=== PATIENT | male | born 1965 ===

== ENCOUNTER 2017-11-11 11:32 | Inpatient (IN) | payer OTHER ==
[~2017-11-11 11:32] MED LIST: ISOVUE-370 76%-LOCM 1 ML ONE
--- NOTE | 2017-11-11 12:05 | CT ---
CT CERVICAL SPINE NONCONTRAST: Date: 11/11/17 HISTORY: Fall. Neck injury. FINDINGS: Vertebral body heights are maintained. Disc space narrowing and minimal degenerative retrolisthesis a re present at the C3-4 level where osteophytosis is also most pronounced. Cervicothoracic junction is intact. No acute fracture or dislocation. Fibrotic changes are partially visualized at the lung apic es. IMPRESSION: Degenerative changes cervical spine. No acute osseous abnormalities are demonstrated. POS: [facility]
--- NOTE | 2017-11-11 12:06 | CT ---
CT BRAIN WITHOUT CONTRAST: Date: 11/11/17 HISTORY: Level II trauma, fall, GS 13, no loss of consciousness, dizziness. FINDINGS: No evidence of acute infarct, hemorrhage, midline shift, or abnormal extra-axial fluid collections ar e seen. The ventricular size is normal and the basilar cisterns are patent. The bony calvarium is int act. The visualized paranasal sinuses and mastoid air cells are well aerated. IMPRESSION: No CT evidence of acute intracranial process. Discussed over the telephone with ER physician, Dr. Lynne, at 1200 hours. CODE CR. POS: [facility]
--- NOTE | 2017-11-11 12:37 | CT ---
CT CHEST WITH IV CONTRAST CT ABDOMEN AND PELVIS WITH IV CONTRAST CT THORACIC SPINE NONCONTRAST CT LUMBAR SPINE NONCONTRAST: Date: 11/11/17 HISTORY: Fall. Chest injury. Abdomen injury. Back injury. FINDINGS: Nondisplaced and mildly displaced fractures involve the anterior aspect of the right 7th rib and post erior aspect of right ribs 7, 8, and 9, and right ribs 10 and 11. Fractures also involve the lateral aspect of left ribs 4, 5, 6, and 7, and the posterior aspect of left ribs 11 and 12. Tiny left java support engineer ior pneumothorax with significant bibasilar atelectasis. No mediastinal hematoma. Hemangioma is appar ent within the posterior segment right liver lobe. No solid organ intra-abdominal injury is apparent. Minimal haziness around the pancreas could be related to contusion. Fractures involve the right lumbar transverse processes of L3 and L5, and the left L2, L3, and L4 lum bar transverse processes. There is widening of each sacroiliac joint. Nondisplaced fractures through the bilateral superior and inferior pubic rami are present with widening of the pubic symphysis. Mini viktoria displaced comminuted fracture of the left acetabulum includes intraarticular component to the a nterior medial wall with 0.2 cm distraction. The fracture includes the left anterior and posterior co lumns. A small amount of blood extends along the left internal pelvic wall, between the urinary bladd er and iliac vessels. There is slight effacement of the left side of the urinary bladder, although th e hematoma remains small. No active extravasation of contrast is evident. IMPRESSION: 1. Comminuted pelvic fractures including multiplane extension into the left acetabulum and involveme nt of the anterior and posterior columns. There is also diastasis of the pubic symphysis and sacroili ac joints. Small left pelvic wall hematoma is present. Please consider emergent orthopedic evaluation . 2. Very small left pneumothorax with multiple bilateral rib fractures as detailed above. Bilateral l umbar spine transverse process fractures are also apparent. Findings called to Dr. Lynne in the emergency department at 1206 hours. CODE CR. POS: [facility]
[2017-11-11 12:38] LABS: PTT 26.7 SEC (22.9-36.1); Prothrombin Time 13.7 SEC (12.0-14.7)
--- NOTE | 2017-11-11 12:39 | RAD ---
AP VIEW PELVIS: Date: 11/11/17 HISTORY: Fall. FINDINGS: There is a mildly displaced fracture through the left posterolateral aspect of the acetabulum. There is a widening of the right SI joint. There is widening of the pubic symphysis. IMPRESSION: Left acetabular fracture with widening of the right SI joint and pubic symphysis. POS: [facility]
--- NOTE | 2017-11-11 12:42 | RAD ---
CHEST 1 VIEW: Date: 11/11/17 HISTORY: 51-year-old male with history of chest injury following a fall 30-ft from a train trestle bridge. FINDINGS: Poor inspiratory effort. Monitor leads overlie the chest. Minimal motion artifact. Probable nondispla ashwini fractures of the left 6th and 7th ribs. No evidence for pneumothorax by plain film. IMPRESSION: Nondisplaced fractures of at least the left 6th and 7th ribs. No evidence for pneumothorax by plain f ilm examination. Poor inspiratory effort with some mild vascular congestion. POS: [facility]
[2017-11-11 12:53] LABS: Hemoglobin 13.8 g/dL (14.0-18.0); Mean Corpuscular HGB CONC 33.7 g/dL (32.0-36.0); Mean Corpuscular Hemoglobin 30.3 pg (27.0-31.0); Mean Corpuscular Volume 89.8 fL (78.0-98.0); Mean Platelet Volume 6.4 fL (7.4-10.4); Platelet Count 303 thou/uL (130-400); Red Blood Cell (RBC) Count 4.55 mill/uL (4.70-6.10)
[2017-11-11 12:55] LABS: ALT (SGPT) 105 U/L (8-55); AST (SGOT) 122 U/L (5-34); Alkaline Phosphatase 61 U/L (40-150); Anion Gap 15 mmol/L (10-20); BUN (Urea Nitrogen) 13 mg/dL (8.4-25.7); Bilirubin, Total 0.7 mg/dL (0.2-1.2); Calc. Creatinine Clearance 0 mL/min (70-130); Calcium 8.7 mg/dL (7.8-10.44); Carbon Dioxide 19 mmol/L (22-29); Chloride 105 mmol/L (98-107); Estimated GFR-MDRD 44; Globulin 2.7 g/dL (2.4-3.5); Glucose 245 mg/dL (70-105); Potassium 4.1 mmol/L (3.5-5.1); Protein, Total 6.7 g/dL (6.0-8.3); Sodium 135 mmol/L (136-145)
[2017-11-11] MEDS ORDERED: Ketorolac Tromethamine 30 MG/ML VIAL ONE (12:56)
[2017-11-11 13:02] LABS: Band 17 % (5-11); Lymphocytes 15 % (21-51); MDiff Complete? YES; Monocytes 3 % (0-10); Neutrophil 64 % (42-75); PLT Morphology Comment Appears Adequate; RBC Morphology Normal; Reactive Lymphocytes 1 % (0-10)
[2017-11-11] MEDS ORDERED: Fentanyl 100 MCG/2 ML VIAL ONE (13:47)
[2017-11-11] MEDS ORDERED: Adacel (T-DAP) 0.5 ML VIAL ONE (14:19)
[2017-11-11] MEDS ORDERED: hydrALAZINE 20 MG/ML VIAL SLOW IVP PRN (15:02)
[2017-11-11] MEDS ORDERED: Dextrose 50% Abboject 50 ML SYRINGE SLOW IVP PRN (15:02)
[2017-11-11] MEDS ORDERED: Dextrose 5% in Water 1,000 ML IV PRN (15:02)
[2017-11-11 15:10] VITALS: BMI 36.6
[2017-11-11 15:22] LABS: Hemoglobin 13.2 g/dL (14.0-18.0)
[2017-11-11] MEDS: Acetaminophen 1,000 MG in Premix Bag 1 BAG IVPB SCH (18:01)
--- NOTE | 2017-11-11 18:27 | CON ---
DATE OF CONSULTATION: 11/11/2017 CHIEF COMPLAINT: Pelvic pain. HISTORY OF PRESENT ILLNESS: Mr. Fregoso is a 51-year-old male who was working today. He works on a [employer]. He fell down a steep embankment approximately 30 feet. He rolled and struck his pelvis and hip. He was unable to ambulate. He was taken to the emergency department by EMS. Upon initial charlene luation, he was found to have pelvic fracture with opening of the bilateral sacroiliac joints as well as opening of the anterior symphysis. He has also been found to have a left acetabulum fracture. A pelvic binder was placed in the field. He has been stable since arrival. He has received intraveno us fluids for resuscitation. No other injuries have been identified. He is having ongoing trauma wo rkup. PAST MEDICAL HISTORY: The patient denies active medical problems except for obesity. PAST SURGICAL HISTORY: Left hand tendon surgery. SOCIAL HISTORY: He denies tobacco, alcohol or drug use. FAMILY MEDICAL HISTORY: Noncontributory. REVIEW OF SYSTEMS: Positive for hip and pelvis pain as per HPI. IMAGING DATA: CT scan of the pelvis as well as AP pelvis x-ray demonstrated widening of the symphysi s pubis with some vertical malalignment. There is also opening of the bilateral sacroiliac joints. There is a transverse type acetabulum fracture with minimal displacement. The majority of the fractu re is extraarticular. PHYSICAL EXAMINATION: VITAL SIGNS: Stable. GENERAL: The patient is alert, lying supine in no apparent distress. HEENT: Cervical collar is in place. Normocephalic and atraumatic. RESPIRATORY: Breathing comfortably. ABDOMEN: Soft, nontender, nondistended. MUSCULOSKELETAL: The patient's bilateral lower extremities have intact sensation distally. He is ab le to flex and extend the feet and ankles. He has a palpable pulse. He has superficial abrasions an d lacerations over the lower extremities. Pelvic binder is in place, but is not significantly tight. He has pain with hip motion on the left. IMPRESSION: Status post fall with acetabulum fracture, left and bilateral sacroiliac disruption with opening of the pubic symphysis. PLAN: At this point, the patient will have ongoing resuscitation and trauma workup. He will have ap propriate DVT prophylaxis. I have discussed his pelvic injury with him in detail. We will plan for open reduction and internal fixation of the pubic symphysis as well as bilateral sacroiliac screw evita cement to be done tomorrow. I will assess his acetabulum further on CT scan and 3D reconstructions. At this point, I am leaning towards nonoperative treatment for the acetabulum as it appears to be mi nimally displaced and largely extraarticular. He is aware he will need at least 6 weeks to 2 months of nonweightbearing. Risks have been reviewed which do include infection, pain, scarring, nerve or v ascular injury, DVT, PE, nonunion, malunion and others.
[2017-11-11] MEDS: Famotidine 20 MG TAB PO SCH (19:43)
[2017-11-11] MEDS: Sodium Chloride 0.9% 1,000 ML IV SCH (19:49)
--- NOTE | 2017-11-11 21:08 | HP ---
DATE OF SERVICE: 11/11/2017 HISTORY OF PRESENT ILLNESS: This is a 51-year-old gentleman, who was brought in by EMS, who was up o n an embankment, working fell tumbled down an embankment. Questionable loss of consciousness and pat ient complains of back pain. He also complains of shortness of breath. On arrival, he is diaphoreti c and pale, dusky. The patient lives out of town, states he lives in [place] is here working. ALLERGIES: He has no known drug allergies. CURRENT MEDICATIONS: Wellbutrin. He also takes blood pressure medicine, unknown name and also medic ation for triglycerides. PAST SURGICAL HISTORY: Left hand tendon repair. FAMILY HISTORY: Reports his mom had diabetes and of Alzheimer's. SOCIAL HISTORY: He denies tobacco use. He denies alcohol use or any illegal drug use. The patient is . REVIEW OF SYSTEMS: HEENT: The patient denies headaches, vision changes. PULMONARY: Denies any wheezing. He does complain of some mild shortness of breath. Denies history of smoking. CARDIAC: Denies any chest pain or palpitations. GI: He does complain of abdominal pain mainly in the lower area. Denies any nausea or vomiting, shay rrhea or constipation. MUSCULOSKELETAL: He denies any joint swelling. NEUROLOGIC: Denies any seizure, although he was unsure if he lost consciousness when he fell. Denie s any weakness. PHYSICAL EXAMINATION: VITAL SIGNS: Blood pressure is 100/68, heart rate is 84, respirations 24. The patient is satting 10 0% on 2 liters nasal cannula. Oral temperature is 97.4. GENERAL: The patient is awake and alert. GCS of 15, although he was unaware if he lost consciousnes s when he fell. SKIN: Pale, dusky and diaphoretic. HEENT: Pupils are equal and reactive at 2.5 mm. Head is atraumatic. PULMONARY: He has bilateral breath sounds equal. Right is slightly tachypneic. There is no rhonchi , wheezes, or rales. CARDIOVASCULAR: Rhythm is normal. The patient does have S1 and S2, no murmurs noted. ABDOMEN: The patient has tender lower abdomen. There are no obvious abrasions. : The patient has no blood at the meatus. Pelvis is tender to palpation and pelvic binder is in p lace. MUSCULOSKELETAL: The patient does complain of low back pain. He moves all extremities equal with go od range of motion. NEUROLOGIC: Cranial nerves are intact and GCS is 15. LABORATORY DATA: White count is 22.0, RBCs are 4.55, hemoglobin is 13.8, hematocrit 40.9, platelet c ount is 303, MPV 6.4, neutrophils 64, bands 17, lymphocytes 15. PT is 13.7, INR is 1.0, PTT is 26.7. Sodium is 135, potassium 4.1, chloride 105, carbon dioxide is 19, anion gap is 15, BUN 13, creatini ne 1.66. Estimated GFR is 44, glucose 245, calcium 8.7, total bilirubin 0.7, AST is 122, ALT 105, al kaline phosphatase is 61. Serum total protein is 6.2, albumin is 4.0, globulin is 2.7, and the ratio is 1.5. DIAGNOSTICS: Pelvis x-ray has a left acetabular fracture with widening of the right SI joint and pub ic symphysis. CT cervical spine shows no acute abnormality. Brain CT is normal. CT chest, abdomen, and pelvis shows multiple pelvic fractures, anterior and posterior, also a very small left pneumotho rax with multiple bilateral rib fractures as stated from the chest x-ray. ASSESSMENT: 1. Fall approximately 30 feet from an embankment. 2. Multiple pelvic fractures. 3. Bilateral multiple rib fractures. 4. Bilateral pulmonary contusions. 5. Multiple lumbar transverse process fractures. 6. Grade II liver laceration. 7. Dehydration. PLAN: Admit to CCU, 2 units of packed red blood cells were given. Ortho consult for pelvis fracture s, binder remains in place. Repeat CBC, CMP in the morning. Repeat chest x-ray in the morning to ev aluate his rib fractures. We will encourage incentive spirometer. We will place patient on a pain r egimen. He will be n.p.o. after midnight for OR for his pelvis repair. DICTATED BY: Nafisa, Nurse Practioner Student for Dr. Demario Yoo.
[2017-11-11 21:41] LABS: Hemoglobin 12.6 g/dL (14.0-18.0)
[2017-11-12] MEDS: Acetaminophen 1,000 MG in Premix Bag 1 BAG IVPB SCH ×3 (02:38→10:52)
[2017-11-12 04:58] LABS: #Eosinphils 0.1 thou/uL (0.0-0.7); #Lymphocytes 1.7 thou/uL (1.20-3.40); #Monocytes 0.9 thou/uL (0.11-0.59); #Neutrophils 6.9 thou/uL (1.40-6.50); %Basophils 0.2 % (0.0-1.0); %Eosinophils 0.5 % (0.0-10.0); %Lymphocytes 17.9 % (21.0-51.0); %Monocytes 9.1 % (0.0-10.0); %Neutrophils 72.3 % (42.0-75.0); Hemoglobin 11.7 g/dL (14.0-18.0); Mean Corpuscular HGB CONC 35.3 g/dL (32.0-36.0); Mean Corpuscular Hemoglobin 31.3 pg (27.0-31.0); Mean Corpuscular Volume 88.6 fL (78.0-98.0); Mean Platelet Volume 6.1 fL (7.4-10.4); Platelet Count 183 thou/uL (130-400); RBC Distribution Width 12.2 % (11.5-14.5); Red Blood Cell (RBC) Count 3.74 mill/uL (4.70-6.10); White Blood Cell (WBC) Count 9.6 thou/uL (4.8-10.8)
[2017-11-12 05:07] LABS: Anion Gap 9 mmol/L (10-20); BUN (Urea Nitrogen) 13 mg/dL (8.4-25.7); Calc. Creatinine Clearance 129 mL/min (70-130); Calcium 7.7 mg/dL (7.8-10.44); Carbon Dioxide 26 mmol/L (22-29); Chloride 106 mmol/L (98-107); Estimated GFR-MDRD 71; Glucose 152 mg/dL (70-105); Potassium 4.2 mmol/L (3.5-5.1); Sodium 137 mmol/L (136-145)
[2017-11-12] MEDS: Sodium Chloride 0.9% 1,000 ML IV SCH ×3 (05:59→20:50)
[2017-11-12] MEDS: Famotidine 20 MG TAB PO SCH ×2 (08:10→20:49)
--- NOTE | 2017-11-12 08:50 | PRG ---
DATE OF SERVICE: 11/12/2017 SUBJECTIVE: Mr. Fregoso is a 51-year-old man who suffered multiple trauma after falling down an emban kment yesterday at work. The patient sustained bilateral rib fractures, bilateral pulmonary contusio ns, bilateral pelvic fractures, multilevel lumbar transverse process fractures as well as a grade II liver laceration. He has remained hemodynamically stable overnight. The pain is adequately controll ed with analgesics. He did receive 2 units of packed red blood cells yesterday and has required none since. OBJECTIVE: VITAL SIGNS: This morning includes blood pressure 130/70, pulse 70, respiratory rate 19, maximum tem perature in the last 24 hours is 98.7 degrees Fahrenheit, oxygen saturation is 100% on 2 liters by na desiree cannula oxygen. Franky coma scale is 15. HEENT: Reveals normocephalic and atraumatic. Pupils equal, round, reactive to light and accommodati on. HEART: Reveals regular rate and rhythm, no murmurs or gallops auscultated. CHEST: Clear to auscultation bilaterally. Breathing is regular and unlabored. ABDOMEN: Soft, nontender, nondistended. Liver and spleen nonpalpable below costal margin. EXTREMITIES: Reveals 2+ radial and pedal pulses bilaterally. No ankle edema is present. NEUROLOGIC: Reveals no focal deficits present. LABORATORY DATA: Include a CBC with 9600 white blood cells, hemoglobin and hematocrit are stable at 11.7 and 33.1 respectively. Platelet count is also stable at 183,000. Metabolic profile: Sodium 13 7, potassium 4.2, chloride is 106, bicarbonate is 26, BUN 13, creatinine is 1.09, glucose is 152. IMPRESSION: 1. Post-injury day #1, status post fall down an embankment. 2. Stable bilateral rib fractures and pulmonary contusions. 3. Bilateral pelvic fractures. 4. Grade II liver laceration, no clinical evidence of active hemorrhage. PLAN: 1. Continue current pain management. 2. Continue with nonpharmacological VTE prophylaxis. 3. The patient is certainly hemodynamically stable to proceed to the operating room with Orthopedic Surgery with regards to his pelvic fractures. The patient indicates understanding of information given. I have answered his questions.
--- NOTE | 2017-11-12 08:50 | RAD ---
PORTABLE CHEST 1 VIEW: Date: 11/12/17 Time: 0438 hours HISTORY: Pulmonary contusions. FINDINGS/IMPRESSION: Comparison made with exam from previous day. There is continued elevation of the right hemidiaphragm. Left-sided rib fractures area again noted. N o lobar consolidation, pneumothorax, or large effusions are seen. POS: [facility]
[2017-11-12 09:17] LABS: Hemoglobin 11.8 g/dL (14.0-18.0)
[2017-11-12] MEDS ORDERED: CEFAZOLIN/Water 2 GM/20 ML SYRINGE SLOW IVP SCH ×2 (12:00→20:00)
[2017-11-12] MEDS ORDERED: Famotidine/PF 20 mg/2ml Vial ONE (13:29)
[2017-11-12] MEDS ORDERED: Midazolam HCl 2 mg/2 ml Vial ONE (13:29)
[2017-11-12] MEDS ORDERED: Fentanyl 100 MCG/2 ML VIAL ONE ×4 (13:29→18:39)
[2017-11-12] MEDS ORDERED: PROPOFOL 200 MG/20 ML VIAL ONE (13:30)
[2017-11-12] MEDS ORDERED: Ketorolac Tromethamine 30 MG/ML VIAL ONE (13:30)
[2017-11-12] MEDS ORDERED: Lidocaine 1% PF 5 ML VIAL ONE (13:30)
[2017-11-12] MEDS ORDERED: Ondansetron HCl/PF 4 MG/2 ML Vial ONE (13:30)
[2017-11-12] MEDS ORDERED: Succinylcholine Chloride 20 MG/ML 10 ml SYRINGE FS ONE (13:30)
[2017-11-12] MEDS ORDERED: Ondansetron HCl/PF 4 MG/2 ML Vial IVP PRN (18:08)
[2017-11-12] MEDS ORDERED: HYDROmorphone 2 MG/ML VIAL SLOW IVP PRN (18:08)
[2017-11-12] MEDS ORDERED: Promethazine HCl 25 MG/ML VIAL IM PRN (18:08)
[2017-11-12] MEDS ORDERED: Promethazine HCl 25 MG/ML VIAL SLOW IVP PRN (18:08)
[2017-11-12 18:19] LABS: Hemoglobin 11.6 g/dL (14.0-18.0)
[2017-11-12] MEDS ORDERED: traMADol HCl 50 MG TAB PO PRN (18:27)
--- NOTE | 2017-11-12 20:40 | RAD ---
SEVEN INTRAOPERATIVE IMAGES OF THE PELVIS: 11/12/17 HISTORY: Pelvic fracture status post open reduction and internal fixation. FINDINGS: There is postoperative screw and plate fixation present involving the bilateral pubic bones traversin g the pubic symphysis and extending into the region of the acetabulum on the left. There are two scott ulated lag screws which traverse the sacroiliac joints. IMPRESSION: ORIF as above. POS: [facility]
[2017-11-12] MEDS: Ibuprofen 800 MG TAB PO SCH (20:49)
[2017-11-12] MEDS: Acetaminophen 325 MG TAB PO SCH (20:49)
--- NOTE | 2017-11-12 21:23 | CT ---
CT OF THE PELVIS 11/12/17 COMPARISON: 11/11/17. HISTORY: Pelvic fractures, status post open reduction and internal fixation. TECHNIQUE: Serial axial CT imaging at 3.75 mm intervals through the pelvis without contrast. Coronal and sagitta l reformatted imaging obtained. FINDINGS: Lizarraga catheter extends into the urinary bladder. Horizontally oriented anterior cutaneous garrett are present superior to the pubic symphysis. Neither hip is dislocated. Bilateral mildly displaced inferior pubic rami fractures are noted. There is a subtle obliquely oriented fracture involving the anterior superior aspect of the acetabulu m on the right, best seen on image 46, stable and nondisplaced. There is extensive new screw and plate fixation associated with bilateral pubic bones traversing the pubic symphysis and extending into the acetabulum on the left. A comminuted fracture of the acetabulu m involving the anterior posterior and medial portions of the left acetabulum again noted and demonst rating no significant displacement. The previously noted diastasis of the pubic symphysis has been re duced. There are screws traversing bilateral sacroiliac joints. There is mild residual widening of the sacro iliac joints, improved. No displaced sacral fracture is identified. There is a subtle linear defect involving the superior aspect of the iliac bone on the left on image 19, which may be postoperative in nature. There is a nondisplaced fracture involving the right transv erse process of the L5 vertebral body. There is a fracture involving the tip of the left transverse p rocess of L4 vertebral body. There is nonspecific small volume fluid in the presacral space. There is subcutaneous gas anterior an d superior to the pubic symphysis and in the left inguinal region. There is gas within the urinary bladder. The anterior aspect of the urinary bladder extends slightly more anterior than normal, projecting superior to and slightly to the postoperative hardware at the l evel of the pubic symphysis. Significance is uncertain. This may be related to anterior herniation as sociated with acute muscle injury in this region. Clinical correlation is required as is followup howardthom carlton. IMPRESSION: Multiple fractures status post ORIF as above. Gas within the urinary bladder is noted, with the urina ry bladder extending anterior to and superior to the pubic symphysis as detailed above. Thus followup imaging is advised. POS: [facility]
[2017-11-12 21:24] LABS: Hemoglobin 10.5 g/dL (14.0-18.0)
[2017-11-12] MEDS: traMADol HCl 50 MG TAB PO SCH (23:01)
[2017-11-12] MEDS: CEFAZOLIN/Water 2 GM/20 ML SYRINGE SLOW IVP SCH (23:01)
[2017-11-13] MEDS: Acetaminophen 325 MG TAB PO SCH ×3 (00:56→08:17)
--- NOTE | 2017-11-13 01:51 | OP ---
DATE OF PROCEDURE: 11/12/2017 OPERATION: 1. Open reduction internal fixation of left acetabulum fracture. 2. Open reduction internal fixation of pubic symphysis. 3. Bilateral sacroiliac screw placement. PREOPERATIVE DIAGNOSES: 1. Left acetabulum fracture, transverse. 2. The pubic symphysis disruption and bilateral sacroiliac joint disruption. POSTOPERATIVE DIAGNOSES: 1. Left acetabulum fracture, transverse. 2. The pubic symphysis disruption and bilateral sacroiliac joint disruption. COMPLICATIONS: None. ESTIMATED BLOOD LOSS: 500 mL SURGEON: Maik Bhatia M.D. TRADE RECRUITER: Jimmy Bonds M.D. IMPLANTS: Synthes 3.5 mm nonlocking screws and a pelvic reconstruction plate, 14-hole was used. We also used two 7.3 mm cannulated screws. INDICATIONS: Mr. Fregoso is a 51-year-old male who fell down in an embankment. He sustained severe f racture of the pelvis and acetabulum. He was indicated for open reduction and internal fixation to r estore anatomic alignment and promote healing. Risks were reviewed in detail. He elected to proceed with the operation. Risks do include infection, nonunion, malunion, nerve or vascular injury, DVT, PE, hardware failure and others. DESCRIPTION OF PROCEDURE: Mr. Fregoso was identified in the preoperative holding area. His correct e xtremity was marked. He was carried to the operating room. He was positioned supine. General anest hesia was induced. A multidisciplinary timeout was performed. The pelvis and anterior abdomen was p repped and draped in sterile fashion. We began the procedure with a midline Pfannenstiel type incision. We dissected down to the subcutane ous tissues, then developed the rectus abdominis plane. This brought us down to the level of the bud dder. The bladder was retracted. We encountered the widely displaced pubic symphysis. We elevated the tissues from the pubic symphysis and worked from the midline. We worked to the left side develop ing the Stoppa approach. This intrapelvic approach allowed us to follow the pelvic brim around past the acetabulum fracture. We ligated the pak mortise vessel. The iliopectineal fascia was release d exposing the fracture. At this point, we proceeded with acetabular fracture reduction. A ball spike pusher was used to redu ce the fracture fragment back into its anatomic position. This was held with K-wire fixation. We th en applied a 14-hole Synthes pelvic reconstruction plate. A screw was placed posterior to the fractu re. We then followed this curve along the pelvic brim placing multiple screws. We achieved rigid fi xation of the acetabulum fracture using this plate and screw construct. We took x-ray images through out this procedure confirming this. At this point, we reduced this pubic symphysis and used the same plate to fixate the pubic symphysis diastasis. Three screws were placed on either side of the pubic symphysis. Again, we took x-ray howard ges confirming placement. Finally, we moved to the sacroiliac joint fixation. We used intraoperativ e inlet and outlet x-rays to obtain appropriate start points. A left-sided sacroiliac screw was plac ed using a guidewire followed by overdrilling then a 7.3 mm cannulated screw with a washer was placed . We performed a similar procedure on the right sacroiliac joint. This reduced the sacroiliac joint diastasis back into an anatomic position. We took great care to place these in safe columns of bone . We took final x-ray images. We then thoroughly irrigated all wounds. Next, we closed in layers a ppropriately including the rectus abdominis followed by subcutaneous tissue and skin. A sterile dres sing was applied. The patient was taken to the recovery room in good condition without complication.
[2017-11-13] MEDS: HYDROcodone/Acetaminophen 5/325 mg Tablet PO PRN ×2 (03:46→08:16)
[2017-11-13] MEDS: Ondansetron HCl/PF 4 MG/2 ML Vial IVP PRN ×2 (03:46→21:39)
[2017-11-13] MEDS: Ibuprofen 800 MG TAB PO SCH (03:47)
[2017-11-13 05:19] LABS: Anion Gap 12 mmol/L (10-20); BUN (Urea Nitrogen) 12 mg/dL (8.4-25.7); Calc. Creatinine Clearance 152 mL/min (70-130); Calcium 8.2 mg/dL (7.8-10.44); Carbon Dioxide 25 mmol/L (22-29); Chloride 104 mmol/L (98-107); Estimated GFR-MDRD 86; Glucose 165 mg/dL (70-105); Magnesium 1.8 mg/dL (1.6-2.6); Phosphorus 2.1 mg/dL (2.3-4.7); Potassium 4.5 mmol/L (3.5-5.1); Sodium 136 mmol/L (136-145)
[2017-11-13] MEDS: traMADol HCl 50 MG TAB PO SCH (06:36)
[2017-11-13] MEDS: CEFAZOLIN/Water 2 GM/20 ML SYRINGE SLOW IVP SCH (06:37)
[2017-11-13 07:06] LABS: #Lymphocytes 1.2 thou/uL (1.20-3.40); #Neutrophils 9.7 thou/uL (1.40-6.50); %Basophils 0.1 % (0.0-1.0); %Eosinophils 0.1 % (0.0-10.0); %Lymphocytes 10.4 % (21.0-51.0); %Monocytes 8.1 % (0.0-10.0); %Neutrophils 81.3 % (42.0-75.0); Hemoglobin 9.5 g/dL (14.0-18.0); Mean Corpuscular HGB CONC 35.1 g/dL (32.0-36.0); Mean Corpuscular Hemoglobin 31.5 pg (27.0-31.0); Mean Corpuscular Volume 89.8 fL (78.0-98.0); Mean Platelet Volume 6.7 fL (7.4-10.4); Platelet Count 180 thou/uL (130-400); RBC Distribution Width 12.1 % (11.5-14.5); Red Blood Cell (RBC) Count 3.03 mill/uL (4.70-6.10); White Blood Cell (WBC) Count 11.9 thou/uL (4.8-10.8)
[2017-11-13] MEDS: Ferrous Sulfate 325 MG TAB PO SCH ×2 (08:17→17:57)
[2017-11-13] MEDS: Famotidine 20 MG TAB PO SCH ×2 (08:17→21:31)
[2017-11-13] MEDS: Ascorbic Acid 500 mg Chewable Tablet PO SCH ×2 (08:17→21:31)
[2017-11-13] MEDS: Enoxaparin Sodium 40 MG/0.4 ML SYRINGE SC SCH (08:18)
[2017-11-13] MEDS ORDERED: Sodium Phosphate 20 MMOL, Magnesium Sulfate 2 GM in Sodium Chloride 0.9% 250 ML 250 ML IVPB SCH (08:30)
[2017-11-13] MEDS: Sodium Chloride 0.9% 1,000 ML IV SCH ×2 (08:33→09:11)
[2017-11-13] MEDS ORDERED: Promethazine HCl 25 MG/ML VIAL IM PRN (09:26)
[2017-11-13] MEDS ORDERED: diphenhydrAMINE 25 MG CAP PO PRN (09:26)
[2017-11-13] MEDS ORDERED: diphenhydrAMINE 50 MG/ML VIAL IM PRN (09:26)
[2017-11-13] MEDS ORDERED: diphenhydrAMINE 50 MG/ML VIAL IVP PRN (09:26)
[2017-11-13] MEDS ORDERED: Naloxone HCl 0.4 mg/ml Vial IV PRN (09:26)
[2017-11-13] MEDS ORDERED: Communication Order-Pharmacy FS SCH (09:30)
[2017-11-13] MEDS: Ondansetron ODT 4 MG TAB PO PRN ×2 (09:32→15:31)
[2017-11-13] MEDS: HYDROcodone/Acetaminophen 5/325 mg Tablet PO SCH ×3 (09:45→21:31)
[2017-11-13] MEDS: HYDROmorphone 10 mg/100 ml CADD IVPB PRN (10:06)
--- NOTE | 2017-11-13 15:21 | PRG ---
DATE OF SERVICE: 11/12/2017 This is a nurse practitioner student, Nafisa Camarena, dictating progress note for Dr. Demario Yoo. SUBJECTIVE: Mr. Fregoso is a 51-year-old male who suffered multiple trauma after falling down and rol ling down an embankment yesterday at work. The patient sustained bilateral rib fractures, bilateral pulmonary contusions, bilateral pelvic fractures, multilevel lumbar transverse process fractures as w ell as a grade II liver laceration. He has remained hemodynamically stable. His pain is not well co ntrolled at this time. Reports his pain at 8/10. The patient also reports that he has not had a bow el movement since admission. OBJECTIVE: VITAL SIGNS: Temperature 98.0, pulse 90, respirations 16, O2 saturation 100% on 2 liters nasal cannu la, blood pressure 126/75, Wolcott coma scale is 15. HEENT: Reveals normocephalic and atraumatic. Pupils are equal, round, and reactive to light and acc ommodation. HEART: Reveals regular rate and rhythm. There are no murmurs, gallops or rubs. CHEST: Clear to auscultation bilateral. Breathing is regular and unlabored. ABDOMEN: Soft, nontender, nondistended. EXTREMITIES: Reveals 2+ radial and pedal pulses bilateral. There is no pedal edema. NEUROLOGIC: No focal deficits present. LABORATORY DATA: WBC 11.9, RBC 3.03, hemoglobin 9.65, hematocrit 27.2, platelet count is 180. Sodiu m is 136, potassium 4.5, chloride 104, carbon dioxide 25, BUN 12, creatinine 0.92, glucose 165, calci um 8.2, phosphorus 2.1, magnesium 1.8. IMPRESSION: 1. Post-injury day #2, post-falling down an embankment. 2. Postoperative day #1, open reduction internal fixation left acetabular fracture and open reductio n internal fixation pubic symphysis. 3. Grade 2 liver laceration, no clinical evidence of active hemorrhage. 4. Acute pain secondary to trauma. PLAN: We will place patient on a STATIONARY FIREMAN pump at this time to help control his pain. PT, OT consult, ch emical and DVT prophylaxis, regular diet. Continue to encourage incentive spirometer use. We will a lso place the patient on a scheduled bowel regimen.
[2017-11-13] MEDS: Senokot S 8.6-50 MG TAB PO SCH (21:31)
[2017-11-14] MEDS: HYDROcodone/Acetaminophen 5/325 mg Tablet PO SCH ×4 (03:34→20:27)
[2017-11-14 04:33] LABS: #Lymphocytes 1.4 thou/uL (1.20-3.40); #Monocytes 0.9 thou/uL (0.11-0.59); #Neutrophils 6.8 thou/uL (1.40-6.50); %Basophils 0.3 % (0.0-1.0); %Eosinophils 0.3 % (0.0-10.0); %Lymphocytes 15.1 % (21.0-51.0); %Neutrophils 74.3 % (42.0-75.0); Mean Corpuscular HGB CONC 35.3 g/dL (32.0-36.0); Mean Corpuscular Hemoglobin 31.3 pg (27.0-31.0); Mean Corpuscular Volume 88.6 fL (78.0-98.0); Mean Platelet Volume 6.1 fL (7.4-10.4); Platelet Count 174 thou/uL (130-400); RBC Distribution Width 11.9 % (11.5-14.5); Red Blood Cell (RBC) Count 2.55 mill/uL (4.70-6.10); White Blood Cell (WBC) Count 9.1 thou/uL (4.8-10.8)
[2017-11-14 04:52] LABS: Magnesium 2.3 mg/dL (1.6-2.6); Phosphorus 2.6 mg/dL (2.3-4.7)
--- NOTE | 2017-11-14 07:57 | RAD ---
UPRIGHT PORTABLE CHEST 1 VIEW: Date: 11/14/17 HISTORY: 51-year-old male with history of rib fractures. FINDINGS: Poor inspiratory effort. There are at least several rib fractures demonstrated. Minimal parenchymal c hanges are noted in both lung bases, probably related to subsegmental atelectasis. No pneumothorax. N o significant pleural effusion. IMPRESSION: Poor inspiratory effort. Bibasilar linear and parenchymal changes, evidence for subsegmental atelecta sis. No pneumothorax. Left rib fractures. POS: [facility]
[2017-11-14] MEDS: Enoxaparin Sodium 40 MG/0.4 ML SYRINGE SC SCH (08:02)
[2017-11-14] MEDS: Senokot S 8.6-50 MG TAB PO SCH ×2 (08:03→20:25)
[2017-11-14] MEDS: Ascorbic Acid 500 mg Chewable Tablet PO SCH ×2 (08:03→20:25)
[2017-11-14] MEDS: Atorvastatin Calcium 40 MG TAB PO SCH (08:03)
[2017-11-14] MEDS: Polyethylene Glycol 3350 17 GM Packet PO SCH (08:03)
[2017-11-14] MEDS: Famotidine 20 MG TAB PO SCH ×2 (08:04→20:25)
[2017-11-14] MEDS: Ferrous Sulfate 325 MG TAB PO SCH ×2 (08:04→16:32)
[2017-11-14] MEDS: Lisinopril 20 MG TAB PO SCH (08:04)
[2017-11-14] MEDS: Bupropion 150 MG XL TAB PO SCH (08:04)
[2017-11-14] MEDS ORDERED: ADMIXTURE FEE CHEMO SC SCH (09:00)
[2017-11-14] MEDS ORDERED: PRE FILLED SC SCH (09:00)
[2017-11-14] MEDS ORDERED: NEOSTIGMINE SC SCH (09:00)
[2017-11-14] MEDS: HYDROmorphone 10 mg/100 ml CADD IVPB PRN (09:10)
[2017-11-14] MEDS: Scopolamine 1.5 mg/72 hour Patch TD SCH (09:25)
--- NOTE | 2017-11-14 10:18 | PRG ---
DATE OF SERVICE: 11/14/2017 SUBJECTIVE: This is a 51-year-old male status post fall down an embankment in which he sustained taya y-traumatic injuries. He is postop day #2 status post repair of his acetabular and pelvic fractures. He has remained hemodynamically stable. Overnight, the patient has been refusing his meals and ora l pain medications. This morning, the patient reports that he has had persistent nausea with some ev idence of vertigo. Pain is better controlled at this time on [employer]. OBJECTIVE: VITAL SIGNS: Temperature 98.4, pulse 91, respirations 14, O2 sat 97% on 2 liters nasal cannula, bloo d pressure 138/79. GENERAL: Resting in bed in no acute distress, appears mildly diaphoretic. PULMONARY: Normal work of breathing. Symmetric rise. CARDIOVASCULAR: Regular rate and rhythm. GASTROINTESTINAL: Abdomen is soft, but distended and tympanic to percussion. Bowel sounds are hypoa ctive, but present. There is no tenderness to palpation. No signs of peritonitis. MUSCULOSKELETAL: Moves all extremities x4. NEUROLOGIC: No focal deficit noted. LABORATORY DATA: WBC 9.1, hemoglobin 8.0, hematocrit 22.6, platelet count 174. X-RAY FINDINGS: Chest x-ray read by Radiology has poor inspiratory effort with evidence of atelectas is bilaterally. ASSESSMENT: 1. Status post fall down an embankment. 2. Acute traumatic pain. 3. Right 7th through 11th rib fractures, left 4th through 7th, 11th and 12th rib fractures, left tin y pneumothorax. 4. L2 through L5 transverse process fracture. 5. Grade II liver laceration. 6. Pulmonary contusion. 7. Acetabular/pelvic fracture, postop day #2 status post open reduction and internal fixation. PLAN: Add scopolamine patch for possible vertigo and persistent nausea. Patient has evidence of ile us. We will add neostigmine 0.5 mg subcutaneous q.6 hours for GI motility. Patient to work with [employer]. He was encouraged to take his p.o. analgesics in order to wean his dependence on IV a nalgesia once he is able to take p.o. Incentive spirometry and pulmonary toileting encouraged. Analisa ent is currently awaiting Workmen's Compensation and has a consult for inpatient rehabilitation in [facility]. We will discuss with case management. The patient was seen and evaluated with Dr. Yoo. All questions were answered at the time of this dictation.
[2017-11-14] MEDS: Ondansetron HCl/PF 4 MG/2 ML Vial IVP PRN ×2 (10:35→16:32)
[2017-11-14] MEDS: PRE FILLED SC SCH (18:13)
[2017-11-14] MEDS: NEOSTIGMINE SC SCH (18:13)
[2017-11-14] MEDS: ADMIXTURE FEE CHEMO SC SCH (18:13)
[2017-11-15] MEDS: NEOSTIGMINE SC SCH ×4 (00:39→16:58)
[2017-11-15] MEDS: PRE FILLED SC SCH ×4 (00:39→16:58)
[2017-11-15] MEDS: ADMIXTURE FEE CHEMO SC SCH ×4 (00:39→16:58)
[2017-11-15] MEDS: HYDROcodone/Acetaminophen 5/325 mg Tablet PO SCH ×4 (04:38→21:16)
[2017-11-15 05:45] LABS: Anion Gap 5 mmol/L (10-20); BUN (Urea Nitrogen) 18 mg/dL (8.4-25.7); Calc. Creatinine Clearance 171 mL/min (70-130); Carbon Dioxide 34 mmol/L (22-29); Chloride 102 mmol/L (98-107); Estimated GFR-MDRD Greater than 90; Glucose 126 mg/dL (70-105); Magnesium 2.4 mg/dL (1.6-2.6); Phosphorus 3.3 mg/dL (2.3-4.7); Potassium 3.8 mmol/L (3.5-5.1); Sodium 137 mmol/L (136-145)
[2017-11-15 05:54] LABS: #Eosinphils 0.2 thou/uL (0.0-0.7); #Lymphocytes 1.5 thou/uL (1.20-3.40); #Monocytes 0.9 thou/uL (0.11-0.59); #Neutrophils 4.6 thou/uL (1.40-6.50); %Eosinophils 2.2 % (0.0-10.0); %Lymphocytes 21.2 % (21.0-51.0); %Monocytes 12.7 % (0.0-10.0); %Neutrophils 63.9 % (42.0-75.0); Hemoglobin 7.5 g/dL (14.0-18.0); Mean Corpuscular HGB CONC 35.6 g/dL (32.0-36.0); Mean Corpuscular Hemoglobin 31.7 pg (27.0-31.0); Mean Corpuscular Volume 89.1 fL (78.0-98.0); Mean Platelet Volume 5.9 fL (7.4-10.4); Platelet Count 199 thou/uL (130-400); RBC Distribution Width 11.9 % (11.5-14.5); Red Blood Cell (RBC) Count 2.37 mill/uL (4.70-6.10); White Blood Cell (WBC) Count 7.2 thou/uL (4.8-10.8)
[2017-11-15] MEDS ORDERED: HYDROcodone/Acetaminophen 5/325 mg Tablet PO PRN (07:42)
[2017-11-15] MEDS ORDERED: HYDROmorphone 10 mg/100 ml CADD IVPB PRN (07:42)
[2017-11-15] MEDS ORDERED: Potassium Phosphate 15 MMOL in Sodium Chloride 0.9% 250 ML 250 ML IVPB SCH (08:00)
[2017-11-15] MEDS: Polyethylene Glycol 3350 17 GM Packet PO SCH (08:48)
[2017-11-15] MEDS: Ferrous Sulfate 325 MG TAB PO SCH ×2 (08:48→16:58)
[2017-11-15] MEDS: Enoxaparin Sodium 40 MG/0.4 ML SYRINGE SC SCH (08:48)
[2017-11-15] MEDS: Ascorbic Acid 500 mg Chewable Tablet PO SCH ×2 (08:48→21:17)
[2017-11-15] MEDS: Bupropion 150 MG XL TAB PO SCH (08:49)
[2017-11-15] MEDS: Famotidine 20 MG TAB PO SCH ×2 (08:49→21:16)
[2017-11-15] MEDS: Senokot S 8.6-50 MG TAB PO SCH ×2 (08:49→21:17)
[2017-11-15] MEDS: Lisinopril 20 MG TAB PO SCH (08:49)
[2017-11-15] MEDS: Atorvastatin Calcium 40 MG TAB PO SCH (08:49)
[2017-11-15] MEDS ORDERED: Magnesium Citrate 300 ML BOT PO SCH (10:30)
--- NOTE | 2017-11-15 11:27 | PRG ---
DATE OF SERVICE: 11/15/2017 SUBJECTIVE: This is a 51-year-old male, status post fall down an embankment with polytraumatic injur ies. He is postop day #3, status post repair of his acetabular and pelvic fractures. Overnight, he remained hemodynamically stable. He reports that his nausea is improved, but he still has persistent dizziness and lightheadedness with standing and while working with physical therapy. 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 OBJECTIVE: VITAL SIGNS: Temperature 98.3, pulse 77, respirations 18, O2 sat 94% on 2 liters nasal cannula, bloo d pressure 113/67. GENERAL: A well-developed male in no acute distress, resting in bed. PULMONARY: Normal work of breathing. Symmetric rise, 1750 mL on his incentive spirometry. CARDIOVASCULAR: Regular rate and rhythm. GASTROINTESTINAL: Abdomen is soft, but distended and tympanic to percussion, similar to yesterday. Bowel sounds remain hypoactive. There is no tenderness to palpation and no signs of peritonitis. MUSCULOSKELETAL: Moves all extremities x4. NEUROLOGIC: No focal deficit noted. LABORATORY FINDINGS: WBC 7.2, hemoglobin 7.5, hematocrit 21.1, platelet count 199. Sodium 137, pota ssium 3.8, chloride 102, carbon dioxide 34, BUN 18, creatinine 0.82. ASSESSMENT: 1. Status post fall down embankment. 2. Acute traumatic pain. 3. Right 7th through 11th rib fractures, left 4th through 7th, 11th, and 12th rib fractures, left ti ny pneumothorax. 4. L2 through L5 transverse process fractures. 5. Grade 2 liver laceration. 6. Pulmonary contusion. 7. Acetabular and pelvic fractures, postoperative day #3, status post open reduction and internal fi xation. PLAN: Add magnesium citrate and continue neostigmine at this time for GI motility. Continue PT and OT. Transfuse 1 unit of PRBC for symptomatic anemia. A.m. labs. Reduce PRESS[employer] STEAMER TENDER dose and lockout time. Add p.r.n. p.o. analgesics for improved pain control. Continue incentive spirometry and pulmonary t oileting. Plan of care was discussed with the patient at bedside. All questions were answered at th e time of this dictation. Patient was discussed with trauma attending.
[2017-11-16] MEDS: NEOSTIGMINE SC SCH ×4 (01:32→19:42)
[2017-11-16] MEDS: PRE FILLED SC SCH ×4 (01:32→19:42)
[2017-11-16] MEDS: ADMIXTURE FEE CHEMO SC SCH ×4 (01:32→19:42)
[2017-11-16] MEDS: HYDROcodone/Acetaminophen 5/325 mg Tablet PO SCH ×2 (04:02→10:28)
[2017-11-16 05:22] LABS: #Eosinphils 0.2 thou/uL (0.0-0.7); #Lymphocytes 1.3 thou/uL (1.20-3.40); #Monocytes 0.7 thou/uL (0.11-0.59); #Neutrophils 3.8 thou/uL (1.40-6.50); %Basophils 0.2 % (0.0-1.0); %Lymphocytes 21.6 % (21.0-51.0); %Monocytes 11.6 % (0.0-10.0); %Neutrophils 62.6 % (42.0-75.0); Hemoglobin 8.5 g/dL (14.0-18.0); Mean Corpuscular HGB CONC 34.2 g/dL (32.0-36.0); Mean Corpuscular Hemoglobin 30.9 pg (27.0-31.0); Mean Corpuscular Volume 90.3 fL (78.0-98.0); Mean Platelet Volume 5.7 fL (7.4-10.4); Platelet Count 246 thou/uL (130-400); RBC Distribution Width 12.3 % (11.5-14.5); Red Blood Cell (RBC) Count 2.76 mill/uL (4.70-6.10); White Blood Cell (WBC) Count 6.1 thou/uL (4.8-10.8)
[2017-11-16] MEDS: Polyethylene Glycol 3350 17 GM Packet PO SCH (10:13)
[2017-11-16] MEDS: Senokot S 8.6-50 MG TAB PO SCH ×2 (10:13→20:51)
[2017-11-16] MEDS: Bupropion 150 MG XL TAB PO SCH (10:13)
[2017-11-16] MEDS: Ferrous Sulfate 325 MG TAB PO SCH ×2 (10:13→20:55)
[2017-11-16] MEDS: Lisinopril 20 MG TAB PO SCH (10:13)
[2017-11-16] MEDS: Ascorbic Acid 500 mg Chewable Tablet PO SCH ×2 (10:14→20:51)
[2017-11-16] MEDS: Famotidine 20 MG TAB PO SCH ×2 (10:14→20:51)
[2017-11-16] MEDS: Atorvastatin Calcium 40 MG TAB PO SCH (10:14)
[2017-11-16] MEDS: Enoxaparin Sodium 40 MG/0.4 ML SYRINGE SC SCH (10:29)
--- NOTE | 2017-11-16 14:55 | PRG ---
DATE OF SERVICE: 11/16/2017 SUBJECTIVE: This is a 51-year-old male status post fall down an embankment with polytraumatic injuri es. He is postop day #4 status post repair of his acetabular and pelvic fractures. There were no ac eleazar overnight events. The patient was able to work with physical therapy yesterday and received 1 un it of PRBC for symptomatic anemia. Upon my evaluation this morning, his only complaint is some abdom inal discomfort secondary to bloating. He states that he is still passing gas, but has not yet had a bowel movement. OBJECTIVE: VITAL SIGNS: Temperature 98.6, pulse 84, respirations 20, O2 saturation 97% on 2 liters nasal cannul a, blood pressure 147/88. GENERAL: Sitting on the edge of the bed, working with physical therapy. PULMONARY: Normal work of breathing. Symmetric rise. IS 1750. ABDOMEN: Rotund, moderate, more firm than previously. Bowel sounds remain hypoactive, but present. There are no signs of peritonitis, guarding or rigidity. MUSCULOSKELETAL: Moves all extremities x4. NEUROLOGIC: No focal deficit noted. LABORATORY DATA: WBC 6.1, hemoglobin 8.5, hematocrit 24.9, platelet count 246. ASSESSMENT: 1. Status post fall down embankment. 2. Acute traumatic pain. 3. Right 7th through 11th rib fractures, left 4th through 7th, 11th and 12th rib fractures, left tin y pneumothorax. 4. L2 through L5 transverse process fractures. 5. Grade II liver laceration, stable. 6. Pulmonary contusion. 7. Acetabular pelvic fracture, postop day #4 status post open reduction and internal fixation. 8. Acute blood loss anemia secondary to above, stable, status post 1 unit of packed red blood cells. 9. Constipation secondary to immobility and narcotic use. PLAN: Continue neostigmine at this time. The patient did not drink magnesium citrate yesterday. Micaela dexter discussion regarding importance of his bowel regimen medications. Discontinue Dilaudid [employer] at thi s time. Transitioned to oral pain medications. Increase [place] dose. Add NSAID. Continue to encour age incentive spirometry and pulmonary toileting. Continue PT and OT. Await eventual disposition pe r case management. Patient is waiting on a workman's compensation. Plan of care was discussed with the patient at bedside. All questions were answered at the time of stay of this dictation. We will discuss with trauma attending.
[2017-11-16] MEDS: HYDROcodone/Acetaminophen 10/325 mg Tablet PO SCH ×2 (15:01→20:33)
[2017-11-16] MEDS: HYDROcodone/Acetaminophen 10/325 mg Tablet PO PRN ×2 (15:02→20:33)
[2017-11-16] MEDS: Ketorolac Tromethamine 30 MG/ML VIAL IVP SCH ×2 (15:03→20:34)
[2017-11-17] MEDS: PRE FILLED SC SCH ×2 (00:39→05:43)
[2017-11-17] MEDS: ADMIXTURE FEE CHEMO SC SCH ×2 (00:39→05:43)
[2017-11-17] MEDS: NEOSTIGMINE SC SCH ×2 (00:39→05:43)
[2017-11-17] MEDS: HYDROcodone/Acetaminophen 10/325 mg Tablet PO SCH ×4 (02:03→20:21)
[2017-11-17] MEDS: Ketorolac Tromethamine 30 MG/ML VIAL IVP SCH ×2 (02:03→06:49)
[2017-11-17] MEDS: HYDROcodone/Acetaminophen 10/325 mg Tablet PO PRN ×3 (02:04→17:15)
[2017-11-17] MEDS: Ferrous Sulfate 325 MG TAB PO SCH ×2 (08:10→17:15)
[2017-11-17] MEDS: Famotidine 20 MG TAB PO SCH ×2 (08:10→20:20)
[2017-11-17] MEDS: Ascorbic Acid 500 mg Chewable Tablet PO SCH ×2 (08:11→20:20)
[2017-11-17] MEDS: Polyethylene Glycol 3350 17 GM Packet PO SCH (08:11)
[2017-11-17] MEDS: Bupropion 150 MG XL TAB PO SCH (08:11)
[2017-11-17] MEDS: Atorvastatin Calcium 40 MG TAB PO SCH (08:11)
[2017-11-17] MEDS: Senokot S 8.6-50 MG TAB PO SCH ×2 (08:11→20:20)
[2017-11-17] MEDS: Enoxaparin Sodium 40 MG/0.4 ML SYRINGE SC SCH (08:12)
[2017-11-17] MEDS: Lisinopril 20 MG TAB PO SCH (08:12)
[2017-11-17] MEDS: Scopolamine 1.5 mg/72 hour Patch TD SCH (08:12)
--- NOTE | 2017-11-17 10:21 | PRG ---
DATE OF SERVICE: 11/17/2017 SUBJECTIVE: This is a 51-year-old male who has had a fall down embankment with polytraumatic injurie s. He is postop day #5 status post repair of his acetabular and pelvic fractures. There were no acu te overnight events. The patient has started to have bowel movements, but his abdomen remains rotund and distended. Other than abdominal pain, he vocalized no complaints this morning. OBJECTIVE: VITAL SIGNS: Temperature 98.5, pulse 89, respiration rate 18, O2 sat 94% on 1-2 liters nasal cannula , blood pressure 163/79. GENERAL: Resting in bed in no acute distress. PULMONARY: Normal work of breathing. Symmetric rise, 7216-6413 mL on incentive spirometry. CARDIOVASCULAR: Regular rate and rhythm, no obvious murmurs, rubs or gallops. GASTROINTESTINAL: The abdomen is rotund, firm and tympanic. Bowel sounds remain hypoactive, but pos itive. MUSCULOSKELETAL: Moves all extremities x4. NEUROLOGIC: No focal deficit is noted. ASSESSMENT: 1. Status post fall down embankment. 2. Acute traumatic pain. 3. Right 7th through 11th rib fractures, left 4th through 7th, 11th and 12th rib fractures, left tin y pneumothorax, stable. 4. L2 through L5 transverse process fractures. 5. Grade II liver laceration, stable. 6. Pulmonary contusion, stable. 7. Acetabular fracture, postop day #5 status post open reduction internal fixation. 8. Acute blood loss anemia secondary to above, stable. 9. Constipation and ileus secondary to immobility and narcotic use. PLAN: Discontinued neostigmine, start Movantik. Continue bowel regimen as ordered. The patient's p ain has been controlled on p.o. analgesics. Continue pain management as ordered. Continue to encour age incentive spirometer and pulmonary toileting. Continue PT and OT. Ask nursing to provide the pa tient with trapeze to improve mobility while in ____. Discuss disposition per case management. The patient is awaiting workmen's compensation. The plan of care was discussed with the patient at bedside. All questions were answered at the time of this dictation. The patient was seen and evaluated with Dr. Yoo.
[2017-11-17] MEDS: Ibuprofen 800 MG TAB PO SCH ×2 (14:30→21:56)
[2017-11-17] MEDS: Gabapentin 300 MG CAP PO SCH (20:20)
[2017-11-18] MEDS: HYDROcodone/Acetaminophen 10/325 mg Tablet PO SCH ×6 (00:50→20:41)
[2017-11-18] MEDS: HYDROcodone/Acetaminophen 10/325 mg Tablet PO PRN (02:30)
[2017-11-18] MEDS: Ibuprofen 800 MG TAB PO SCH ×3 (05:42→21:53)
[2017-11-18 06:38] LABS: #Eosinphils 0.3 thou/uL (0.0-0.7); #Lymphocytes 1.9 thou/uL (1.20-3.40); #Neutrophils 8.9 thou/uL (1.40-6.50); %Basophils 0.1 % (0.0-1.0); %Eosinophils 2.6 % (0.0-10.0); %Lymphocytes 15.6 % (21.0-51.0); %Monocytes 8.4 % (0.0-10.0); %Neutrophils 73.2 % (42.0-75.0); Hemoglobin 8.3 g/dL (14.0-18.0); Mean Corpuscular HGB CONC 34.6 g/dL (32.0-36.0); Mean Corpuscular Hemoglobin 31.7 pg (27.0-31.0); Mean Corpuscular Volume 91.7 fL (78.0-98.0); Mean Platelet Volume 5.9 fL (7.4-10.4); Platelet Count 295 thou/uL (130-400); RBC Distribution Width 12.6 % (11.5-14.5); Red Blood Cell (RBC) Count 2.62 mill/uL (4.70-6.10); White Blood Cell (WBC) Count 12.1 thou/uL (4.8-10.8)
[2017-11-18] MEDS: Famotidine 20 MG TAB PO SCH ×2 (08:24→20:42)
[2017-11-18] MEDS: Ascorbic Acid 500 mg Chewable Tablet PO SCH ×2 (08:25→20:43)
[2017-11-18] MEDS: Lisinopril 20 MG TAB PO SCH (08:25)
[2017-11-18] MEDS: Bupropion 150 MG XL TAB PO SCH (08:25)
[2017-11-18] MEDS: Atorvastatin Calcium 40 MG TAB PO SCH (08:26)
[2017-11-18] MEDS: Ferrous Sulfate 325 MG TAB PO SCH ×2 (08:26→17:52)
[2017-11-18] MEDS: Gabapentin 300 MG CAP PO SCH ×3 (08:26→20:42)
[2017-11-18] MEDS: Enoxaparin Sodium 40 MG/0.4 ML SYRINGE SC SCH (08:27)
[2017-11-18] MEDS: Polyethylene Glycol 3350 17 GM Packet PO SCH (08:33)
[2017-11-18] MEDS: Senokot S 8.6-50 MG TAB PO SCH ×2 (08:34→20:42)
--- NOTE | 2017-11-18 11:30 | PRG ---
DATE OF SERVICE: 11/18/2017 SUBJECTIVE: Mr. Fregoso is a 51-year-old man who is post-injury day #7 status post a fall down embank ment where he sustained multiple trauma. The patient is postoperative day #6 status post ORIF of mul tiple pelvic fractures. Currently, he reports adequate pain control. He recorded 3 bowel movements within the last 24 hours. He denies any dyspnea, syncope or chest pain. OBJECTIVE: VITAL SIGNS: This morning includes blood pressure 138/77, pulse is 81, respiratory rate is 12, maxim um temperature in the last 24 hours is 98.4 degrees Fahrenheit, oxygen saturation 92% on room air. HEENT: Reveals pupils equal, round, and reactive to light and accommodation. HEART: Reveals regular rate and rhythm. No murmurs or gallops auscultated. LUNGS: Clear to auscultation bilaterally. Breathing is regular and unlabored. The patient achieves 2000 mL using incentive spirometer. He has better cough effort today. ABDOMEN: Soft and less distended. He has no tenderness to palpation. EXTREMITIES: There are 2+ radial and pedal pulses bilaterally. No ankle edema is present. NEUROLOGIC: Reveals no focal deficits present. LABORATORY DATA: Includes CBC with 12,100 white blood cells, hemoglobin and hematocrit are stable at 8.3 and 24.0 respectively. Platelet count is 295,000. IMPRESSION: 1. Post-admission day #7 status post fall down embankment. 2. Bilateral rib fractures, improving. 3. Multiple pelvic fractures, postoperative day 6, status post open reduction internal fixation. 4. Acute blood loss anemia, stable. PLAN: Increase activity per physical and occupational therapy. The patient is certainly hemodynamic ally stable and await transfer to inpatient rehabilitation once insurance authorization has been secu red and bed availability is established.
[2017-11-19] MEDS: HYDROcodone/Acetaminophen 10/325 mg Tablet PO SCH ×3 (00:54→09:01)
[2017-11-19] MEDS: Ibuprofen 800 MG TAB PO SCH ×3 (05:32→21:27)
[2017-11-19] MEDS: Enoxaparin Sodium 40 MG/0.4 ML SYRINGE SC SCH (09:00)
[2017-11-19] MEDS: Lisinopril 20 MG TAB PO SCH (09:00)
[2017-11-19] MEDS: Ferrous Sulfate 325 MG TAB PO SCH ×2 (09:01→16:36)
[2017-11-19] MEDS: Atorvastatin Calcium 40 MG TAB PO SCH (09:01)
[2017-11-19] MEDS: Senokot S 8.6-50 MG TAB PO SCH ×2 (09:01→21:27)
[2017-11-19] MEDS: Famotidine 20 MG TAB PO SCH ×2 (09:01→21:27)
[2017-11-19] MEDS: Gabapentin 300 MG CAP PO SCH ×3 (09:01→21:27)
[2017-11-19] MEDS: Bupropion 150 MG XL TAB PO SCH (09:02)
[2017-11-19] MEDS: Ascorbic Acid 500 mg Chewable Tablet PO SCH ×2 (09:02→21:27)
[2017-11-19] MEDS: Polyethylene Glycol 3350 17 GM Packet PO SCH (10:57)
[2017-11-19] MEDS: Acetaminophen 500 MG TAB PO SCH ×3 (11:07→21:27)
[2017-11-19] MEDS: traMADol HCl 50 MG TAB PO SCH ×2 (11:53→18:15)
--- NOTE | 2017-11-19 12:37 | PRG ---
DATE OF SERVICE: 11/19/2017 SUBJECTIVE: Mr. Fregoso is a 51-year-old man who sustained multiple trauma following a fall down an e mbankment. The patient reports adequate pain control. He was, however, complaining of having some bad dreams la st night, which made it difficult for him to have REM sleep. He denies any dyspnea, syncope, chest or abdominal pain. He tolerates general diet. He is having normal bowel and urinary function. OBJECTIVE: VITAL SIGNS: Today includes blood pressure 124/73, pulse is 83, respiratory rate is 18, temperature is 98.5 degrees Fahrenheit, oxygen saturation is 98% on room air. HEART: Reveals regular rate and rhythm. No murmurs or gallops were auscultated. CHEST: Clear to auscultation bilaterally. Breathing is regular and unlabored. ABDOMEN: Soft, nontender, nondistended. EXTREMITIES: 2+ radial and pedal pulses bilaterally. No ankle edema is present. NEUROLOGIC: Reveals no focal deficits present. IMPRESSION: 1. Postoperative day #7 status post open reduction internal fixation of pelvic fracture. 2. Stable blunt chest trauma. PLAN: We will deescalate on oral analgesics. We will continue with physical and occupational therapy. The patient is certainly hemodynamically stable for transfer to inpatient rehabilitation once insuran ce authorization and bed availability has been ensured.
[2017-11-19] MEDS: Melatonin 3 MG TAB PO PRN (21:27)
[2017-11-20] MEDS: traMADol HCl 50 MG TAB PO SCH ×4 (00:01→19:05)
[2017-11-20] MEDS: Acetaminophen 500 MG TAB PO SCH ×4 (04:04→21:11)
[2017-11-20] MEDS: Melatonin 3 MG TAB PO PRN ×2 (04:09→21:12)
[2017-11-20] MEDS: Ibuprofen 800 MG TAB PO SCH ×3 (06:16→21:12)
[2017-11-20] MEDS: Bupropion 150 MG XL TAB PO SCH (08:50)
[2017-11-20] MEDS: Ascorbic Acid 500 mg Chewable Tablet PO SCH ×2 (08:50→21:11)
[2017-11-20] MEDS: Lisinopril 20 MG TAB PO SCH (08:50)
[2017-11-20] MEDS: Atorvastatin Calcium 40 MG TAB PO SCH (08:51)
[2017-11-20] MEDS: Senokot S 8.6-50 MG TAB PO SCH ×2 (08:51→21:11)
[2017-11-20] MEDS: Famotidine 20 MG TAB PO SCH ×2 (08:51→21:11)
[2017-11-20] MEDS: Gabapentin 300 MG CAP PO SCH ×3 (08:51→21:11)
[2017-11-20] MEDS: Ferrous Sulfate 325 MG TAB PO SCH ×2 (08:51→17:30)
[2017-11-20] MEDS: Scopolamine 1.5 mg/72 hour Patch TD SCH (08:52)
[2017-11-20] MEDS: Enoxaparin Sodium 40 MG/0.4 ML SYRINGE SC SCH (08:52)
[2017-11-20] MEDS: Polyethylene Glycol 3350 17 GM Packet PO SCH (12:18)
--- NOTE | 2017-11-20 17:12 | PRG ---
DATE OF SERVICE: 11/20/2017 ATTENDING PHYSICIAN: Dr. Demario Yoo. SUBJECTIVE: Mr. Fregoso is a 51-year-old male who is hospital day #9 after falling down an embankment where he sustained multiple pelvic fractures, bilateral multiple rib fractures, bilateral pulmonary contusions, grade II liver laceration, and multiple lumbar transverse process fractures. He has been stable on the surgical floor. He has been medically accepted to the inpatient rehabilitation; [facility], is pending worker's compensation funding. He did report an episode 2 nights ago of not being abl e to stay asleep. Melatonin was added for sleep last night. He does report better sleep quality las t p.m. The pain has been well controlled. OBJECTIVE: VITAL SIGNS: Temperature 98.1, pulse 87, respirations 16, O2 sat 93% room air, blood pressure 142/79 . CONSTITUTIONAL: Well-developed, well-nourished male, sitting up in chair, no acute distress. PULMONARY: Bilateral breath sounds clear. No respiratory distress. HEART: Regular rate and rhythm. ABDOMEN: Soft, nontender, nondistended. EXTREMITIES: Moves all extremities, 2+ pulses. Cap refill brisk. Neurovascularly intact. NEUROLOGIC: GCS of 15. ASSESSMENT: 1. Postoperative day #8 status post open reduction and internal fixation of pelvic fracture. 2. Multiple bilateral rib fractures. 3. Grade II liver laceration, stable. PLAN: 1. Continue analgesia as ordered. 2. Continue melatonin for sleep. 3. Continue mobilizing with physical and occupational therapy. 4. Case management following for discharge planning. The patient is medically stable to be discharg ed to inpatient rehabilitation facility when funding approved. 5. Lovenox for DVT prophylaxis. 6. Pepcid for gastritis prophylaxis. The patient was seen and examined with Dr. Yoo, who agrees with plan.
[2017-11-21] MEDS: traMADol HCl 50 MG TAB PO SCH ×3 (01:38→12:53)
[2017-11-21] MEDS: Acetaminophen 500 MG TAB PO SCH ×2 (06:16→09:01)
[2017-11-21] MEDS: Ibuprofen 800 MG TAB PO SCH ×2 (06:54→14:06)
[2017-11-21] MEDS: Bupropion 150 MG XL TAB PO SCH (08:55)
[2017-11-21] MEDS: Atorvastatin Calcium 40 MG TAB PO SCH (08:55)
[2017-11-21] MEDS: Enoxaparin Sodium 40 MG/0.4 ML SYRINGE SC SCH (08:55)
[2017-11-21] MEDS: Ferrous Sulfate 325 MG TAB PO SCH (08:55)
[2017-11-21] MEDS: Gabapentin 300 MG CAP PO SCH ×2 (08:56→14:06)
[2017-11-21] MEDS: Ascorbic Acid 500 mg Chewable Tablet PO SCH (08:56)
[2017-11-21] MEDS: Famotidine 20 MG TAB PO SCH (08:56)
[2017-11-21] MEDS: Lisinopril 20 MG TAB PO SCH (08:56)
[2017-11-21] MEDS: Polyethylene Glycol 3350 17 GM Packet PO SCH (08:57)
[2017-11-21] MEDS: Senokot S 8.6-50 MG TAB PO SCH (08:58)
[2017-11-21 11:41] VITALS: BP 150/81; TEMP 98.5
== END 2017-11-21 14:27 | DRG 958 ==
LOC: ERS 11:32 → CCU 13:01 → SURG A 11-12 13:52
PROVIDERS: ADMIT Surgery; ATTEND Surgery
PROC: 30233N1 Transfusion of Nonautologous Red Blood Cells into Peripheral Vein, Percutaneous Approach (ICD-10-PCS; 2017-11-11)
PROC: 0QS304Z Reposition Left Pelvic Bone with Internal Fixation Device, Open Approach (ICD-10-PCS; principal; 2017-11-12)
PROC: 0QS504Z Reposition Left Acetabulum with Internal Fixation Device, Open Approach (ICD-10-PCS; 2017-11-12)
PROC: 0SS Lower Joints, Reposition (ICD-10-PCS; 2017-11-12)
PROC: 0QS304Z Reposition Left Pelvic Bone with Internal Fixation Device, Open Approach (ICD-10-PCS; 2017-11-12)
DX: S32.810A Multiple fractures of pelvis with stable disruption of pelvic ring, initial encounter for closed fracture (principal); S22.43XA Multiple fractures of ribs, bilateral, initial encounter for closed fracture; S27.0XXA Traumatic pneumothorax, initial encounter; S36.115A Moderate laceration of liver, initial encounter; S32.029A Unspecified fracture of second lumbar vertebra, initial encounter for closed fracture; S32.039A Unspecified fracture of third lumbar vertebra, initial encounter for closed fracture; S32.049A Unspecified fracture of fourth lumbar vertebra, initial encounter for closed fracture; S27.322A Contusion of lung, bilateral, initial encounter; D62 Acute posthemorrhagic anemia; S32.415A Nondisplaced fracture of anterior wall of left acetabulum, initial encounter for closed fracture; S32.475A Nondisplaced fracture of medial wall of left acetabulum, initial encounter for closed fracture; S32.435A Nondisplaced fracture of anterior column [iliopubic] of left acetabulum, initial encounter for closed fracture; S32.445A Nondisplaced fracture of posterior column [ilioischial] of left acetabulum, initial encounter for closed fracture; S33.2XXA Dislocation of sacroiliac and sacrococcygeal joint, initial encounter; Y93.01 Activity, walking, marching and hiking; W17.81XA Fall down embankment (hill), initial encounter; Y92.85 Railroad track as the place of occurrence of the external cause; Y99.0 Civilian activity done for income or pay; S32.462A Displaced associated transverse-posterior fracture of left acetabulum, initial encounter for closed fracture; S80.812A Abrasion, left lower leg, initial encounter; S80.811A Abrasion, right lower leg, initial encounter; S40.812A Abrasion of left upper arm, initial encounter; R15.9 Full incontinence of feces; R32 Unspecified urinary incontinence; E66.9 Obesity, unspecified; E86.0 Dehydration; G89.11 Acute pain due to trauma; R42 Dizziness and giddiness; K59.03 Drug induced constipation; T40.605A Adverse effect of unspecified narcotics, initial encounter; G47.00 Insomnia, unspecified; Y92.239 Unspecified place in hospital as the place of occurrence of the external cause; Z68.36 Body mass index [BMI] 36.0-36.9, adult; Z87.39 Personal history of other diseases of the musculoskeletal system and connective tissue; Z79.899 Other long term (current) drug therapy
CPT/HCPCS: 36415; 36430; 51702; 70450; 71045; 71260; 72125; 72170; 72192; 74177; 76001; 80048; 80053; 83735; 84100; 85025; 85610; 85730; 86850; 86900; 86901; 90471; 90715; 94640; 96361; 96374; C1713; C1769; G0390; G8978-GP-CM; G8979-GP-CK; G8987-GO-CL; G8988-GO-CJ; J0131; J0360; J1650; J1885; J2001; J2250; J2270; J2405; J2550; J2704; J2710; J3010; J3475; J7050; J7620; P9016; Q0162; S0028